=== PATIENT | male | born 1955 | race Caucasian/White ===

== ENCOUNTER → 2022-02-26 | Outpatient (CLI) | payer MEDICARE, OTHER, SELFPAY ==
--- NOTE | 2022-02-26 10:55 | KNEE_PTH ---
PATIENT: LISSY ULLOA [facility] U#:[id number] AGE/SX: 66/M ROOM: RE02/26/[address]: Dr. Byron Rivas MD : 1955 BED: DIS: 02/26/2022 SPEC #: [id number] RECD: 02/26/22 15:09 STATUS: ALAM JLUIS #: [id number] REFUGIO: 02/26/22 10:[address]: Byron Rivas DEPT: SURGICAL PATHOLOGY RECD BY: Puja Ybarra ENTERED: 03/02/22 10:21 SP TYPE: TOTAL KNEE OTHR DR: ALEXIS Tissues: Knee, NOS Procedures: Decalcification bone/plaque Surgery Specimen Level IV HEADER OPERATION: Left total knee arthroplasty PRE-OP DIAGNOSIS: Left knee severe posttraumatic osteoarthritis TISSUE SUBMITTED: Left knee bone and soft tissue MICROSCOPIC DIAGNOSIS Bone and soft tissue, left knee, total knee replacement/resection: Pieces of bone with degenerative osteoarthritic changes. Fibroadipose tissue, fibroconnective tissue and reactive synovial tissue. SJ:nargis 03/05/2022 MICROSCOPIC DESCRIPTION Slides are reviewed. GROSS DESCRIPTION Received is one container designated bone and soft tissue left knee. The specimen consists of multiple fragments of rivera-yellow bone measuring in aggregate 16 x 10 x 1.5 cm. Also in the specimen container are multiple fragments of yellow-white soft tissue measuring in aggregate 7.5 x 5 x 2.2 cm. A number of bony fragments contain articular surfaces consistent with tibial plateau and femoral condyle and displaying prominent osteophyte formation, eburnation, and bone erosion. Cultural Anthropology Professor sections are submitted in two cassettes as follows: 1 - soft tissue, 2 - bone after decalcification. / AM:nargis 03/02/2022 TC:5 [facility]: [id number]
== END | disposition home or self-care (01) ==
PROVIDERS: Visit Provider Orthopaedic Surgery
DX: M17.32 Unilateral post-traumatic osteoarthritis, left knee (principal)
CPT/HCPCS: 88305; 88311

== ENCOUNTER 2022-07-20 10:18 | Outpatient (CLI) | payer MEDICARE, OTHER, SELFPAY ==
--- NOTE | 2022-07-20 | LES_PTH ---
PATIENT: LISSY ULLOA LOC: [facility] U#:[id number] AGE/SX: 67/M ROOM: RE07/20/[address]: Dr. Juan Pablo Montgomery MD : 1955 BED: DIS: 07/20/2022 SPEC #: [id number] RECD: 07/20/22 11:55 STATUS: ALMA BAZZI #: [id number] REFUGIO: 07/20/22 00:[address]: Juan Pablo Montgomery DEPT: SURGICAL PATHOLOGY RECD BY: Renan Sorto Tissues: Skin of eyelid, NOS Procedures: Surgery Specimen Level IV HEADER OPERATION: Lesion removal left upper eyelid PRE-OP DIAGNOSIS: Left upper eyelid lesion TISSUE SUBMITTED: Left upper eyelid lesion MICROSCOPIC DIAGNOSIS Lesion of left upper eyelid, biopsy: Consistent with xanthelasma. AM:nargis 07/21/2022 MICROSCOPIC DESCRIPTION Slides are reviewed. GROSS DESCRIPTION Received is one container labeled with the patient's name and not further designated. The specimen consists of a piece of rivera-white skin measuring 1.3 x 0.4 x 0.1 cm. The skin surface shows yellowish-rivera lesion measuring 0.7 x 0.4 cm. The specimen is inked, serially sectioned and submitted entirely in one cassette. / SJ:rg 07/20/2022 TC:5 CPT: 72266
== END 2022-07-20 23:59 | disposition home or self-care (01) ==
LOC: LABSPEC 10:26
PROVIDERS: Visit Provider Ophthalmology
DX: H02.9 Unspecified disorder of eyelid (principal)
CPT/HCPCS: 88305